=== PATIENT | female | born 1970 | race Caucasian/White ===

== ENCOUNTER 2022-02-25 06:17 | Day surgery (SDC) | payer OTHER ==
[~2022-02-25] VITALS: Ht 170.2 cm; Wt 84.4 kg
[~2022-02-25 06:17] MED LIST: LEVO-T88 MCG PO; PROMETRIUM200 MG PO; ROSUVASTATIN CAL5 MG PO
[2022-02-25] MEDS ORDERED: IBU600 MG PO (09:31)
== END 2022-02-25 14:40 | disposition home or self-care (01) ==
LOC: CIR.AMB 06:17
PROVIDERS: ATTEND Specialist
DX: N72 Inflammatory disease of cervix uteri (principal); N84.0 Polyp of corpus uteri; Z20.822 Contact with and (suspected) exposure to COVID-19; E03.9 Hypothyroidism, unspecified; H93.13 Tinnitus, bilateral